=== PATIENT | male | born 1945 | race Two or more races ===

== ENCOUNTER → 2024-08-18 | Outpatient (CLI) | payer OTHER, SELFPAY ==
--- NOTE | 2024-08-18 10:30 | XR_ITS ---
Examination: Ultrasound soft tissue neck TECHNIQUE: Grayscale sonographic images soft tissue neck Date and time: August 18, 2024 1205 hours INDICATIONS: Bilateral Beginning 2 weeks ago. FINDINGS: Nonpathologic lymph nodes in the soft tissue right and left neck, the largest in the right neck 7 x 3 mm IMPRESSION: Nonpathologic lymph nodes
== END | disposition home or self-care (01) ==
PROVIDERS: PCP Nurse Practitioner Family; Referring Provider Nurse Practitioner Family; Visit Provider Nurse Practitioner Family
DX: R22.1 Localized swelling, mass and lump, neck (principal)
CPT/HCPCS: 76536